=== PATIENT | male | born 1990 | race African-American/Black ===

== ENCOUNTER 2021-12-07 06:07 | Emergency (ER) | payer OTHER, SELFPAY ==
[2021-12-07] MEDS ORDERED: ACETAMINOPHEN 325 MG TABLET ONE (06:53)
[2021-12-07] MEDS ORDERED: METOCLOPRAMIDE 10 MG/2mL INJ ONE ×2 (06:53→06:55)
[2021-12-07] MEDS ORDERED: NA CHLORIDE 0.9% 1,000 ML ONE (06:53)
[2021-12-07] MEDS ORDERED: NA CHLORIDE 0.9% 50 ML ONE ×2 (06:53→06:55)
[2021-12-07] MEDS ORDERED: LIDOCAINE VISCOUS 2% SOLN 15 ML UDC ONE (06:56)
[2021-12-07] MEDS ORDERED: MAGNES/ALUMIN/SIMET 30ML UCUP ONE (06:56)
--- NOTE | 2021-12-07 07:26 | RAD REPORT ---
EXAM DESCRIPTION: CT - Head Brain Wo Cont - 12/07/2021 7:08 am CLINICAL HISTORY: Headache, new or worsening, positional COMPARISON: No comparisons TECHNIQUE: Axial 5 mm thick images of the head were obtained without IV contrast. All CT scans are performed using dose optimization technique as appropriate and may include automated exposure control or mA/KV adjustment according to patient size. FINDINGS: No intracranial hemorrhage, mass, edema or shift of mid-line structures. No acute infarcti on changes seen. No abnormal extra-axial fluid collections. Ventricles are normal. Mastoid air cells and visualized portions of the paranasal sinuses are clear. No acute bony findings. IMPRESSION: Negative non-contrast CT head examination.
--- NOTE | 2021-12-07 07:57 | EDPHYS ---
Physician Documentation [facility] Name: Greg Alarcon Age: 31 yrs Sex: Male : 1990 Arrival Date: 12/07/2021 Time: 06:10 Bed 14 Private MD: ED Physician Alfonso Sanchez HPI: 12/07 06:38 This 31 yrs old Black Male presents to ER via Unassigned with complaints of Headache. rn 06:38 The patient complains of pain to the right frontal area and right side of the back of rn head. The patient describes the headache as aching, throbbing. 06:39 Onset: The symptoms/episode began/occurred yesterday. Severity of symptoms: At its rn worst the pain was moderate, in the emergency department the pain is unchanged. Headache History: Denies prior headaches. The patient has not experienced similar symptoms in the past. The patient has not recently seen a physician. Pt reports headache, began yesterday, no trauma, no fever, no vomiting, no vision changes, no neck pain or stiffness. Denies hx of headaches in past. NO focal neuro complaints or symptoms. NO sick contacts. Patient does report family hx of "brain aneurysm".. Historical: - Allergies: 06:42 Amoxicillin; vc1 06:42 PENICILLINS; vc1 - Home Meds: 06:42 None [Active]; vc1 - PMHx: 06:42 None; vc1 - PSHx: 06:42 None; vc1 - Immunization history:: Adult Immunizations up to date, Client reports having NOT received the Covid vaccine. - Social history:: Smoking status: Patient reports the use of cigarette tobacco products, smokes one-half pack cigarettes per day. - Family history:: not pertinent. - Hospitalizations: : No recent hospitalization is reported. ROS: 06:39 Constitutional: Negative for fever, chills, and weight loss, Eyes: Negative for injury, rn pain, redness, and discharge, ENT: Negative for injury, pain, and discharge, Neck: Negative for injury, pain, and swelling, Cardiovascular: Negative for chest pain, palpitations, and edema, Respiratory: Negative for shortness of breath, cough, wheezing, and pleuritic chest pain, Abdomen/GI: Negative for abdominal pain, nausea, vomiting, diarrhea, and constipation, Back: Negative for injury and pain, MS/Extremity: Negative for injury and deformity, Skin: Negative for injury, rash, and discoloration, Neuro: Negative for weakness, numbness, tingling, and seizure. Exam: 06:39 Constitutional: This is a well developed, well nourished patient who is awake, alert, rn and in no acute distress. Head/Face: Normocephalic, atraumatic. Eyes: Pupils equal round and reactive to light, extra-ocular motions intact. Lids and lashes normal. Conjunctiva and sclera are non-icteric and not injected. Cornea within normal limits. Periorbital areas with no swelling, redness, or edema. ENT: No stridor, no nasal drainage Neck: Trachea midline, no masses palpated, and no cervical lymphadenopathy. Supple, full range of motion without nuchal rigidity, or vertebral point tenderness. No Meningismus. Cardiovascular: Regular rate and rhythm. No pulse deficits. Respiratory: Speaking full sentences, unlabored. No increased work of breathing, no retractions or nasal flaring. Abdomen/GI: Soft, non-tender Skin: Warm, dry, no rashes MS/ Extremity: Pulses equal, no cyanosis. Neurovascular intact. Full, normal range of motion. Equal circumference. Neuro: Awake and alert, GCS 15, oriented to person, place, time, and situation. Cranial nerves II-XII grossly intact. Motor strength 5/5 in all extremities. Sensory grossly intact. Cerebellar exam normal. Normal gait. Vital Signs: 06:39 BP 133 / 87; Pulse 106; Resp 18; Temp 100.8(O); Pulse Ox 99% on R/A; Weight 104.33 kg; vc1 Height 6 ft. (182.88 cm); Pain 6/10; 07:22 BP 135 / 97; Pulse 86; Resp 17; Pulse Ox 98% on R/A; tw2 06:39 Body Mass Index 31.19 (104.33 kg, 182.88 cm) vc1 MDM: 06:12 Patient medically screened. rn 07:55 Differential diagnosis: migraine, vasomotor headache. Data reviewed: vital signs, jr11 nurses notes, radiologic studies. ED course: Pt feeling better, refusing further testing, would like to go home, understands the risks involved includidng worsening condition. Pt has capacity to make decisions and can return at anytime. . 06/09 06:37 Order name: CT Head Brain wo Cont; Complete Time: 07:54 rn 12/07 06:38 Order name: IV Start; Complete Time: 06:49 rn Administered Medications: 06:58 Drug: Reglan (metoCLOPramide) 10 mg Route: IVP; Site: right antecubital; lg3 06:59 Follow up: Response: No adverse reaction lg3 06:58 Drug: Tylenol 650 mg Route: PO; lg3 06:58 Follow up: Response: No adverse reaction lg3 06:59 Drug: NS 0.9% 1000 ml Route: IV; Rate: 1000 ml; Site: right antecubital; lg3 07:54 Follow up: Response: No adverse reaction; IV Status: Completed infusion; IV Intake: tw2 1000ml 07:00 Drug: Maalox (aluminum hydroxide, magnesium hydroxide, simethicone) Suspension (200 lg3 mg-200 mg-20 mg/5 mL) 30 ml Route: PO; 07:00 Follow up: Response: No adverse reaction lg3 07:00 Drug: Viscous Lidocaine Liquid (4 %) 10 ml Route: Mucous Membrane; lg3 Disposition Summary: 12/07/21 07:57 Discharge Ordered Location: Home jr11 Condition: Stable jr11 Diagnosis - viral syndrome jr11 - Headache jr11 Discharge Instructions: - Discharge Summary Sheet tw2 - General Headache Without Cause jr11 - Upper Respiratory Infection, Adult jr11 Forms: - Work release form tw2 - SBAR form tw2 - Medication Reconciliation Form jr11 - Thank You Letter jr11 - Antibiotic Education jr11 - Prescription Opioid Use jr11 Prescriptions: - Ibuprofen 600 mg Oral Tablet - take 1 tablet by ORAL route every 6 hours As needed take with food; 30 tablet; jr11 Refills: 0, Product Selection Permitted - Reglan 10 mg Oral Tablet - take 1 tablet by ORAL route every 6 hours take 30 minutes before meals and at 11 bedtime; 20 tablet; Refills: 0, Product Selection Permitted Signatures: Dispatcher [employer] Stanislaw Fox MD MD rn Gibson, Lacie RN RN lg3 Jenny Helms RN RN vc1 Alfonso Sanchez MD MD jr11 Alyce Monte RN tw2 Corrections: (The following items were deleted from the chart) 06:41 06:39 Constitutional: Negative for fever, chills, and weight loss, Eyes: Negative for rn injury, pain, redness, and discharge, Neck: Negative for injury, pain, and swelling, Cardiovascular: Negative for chest pain, palpitations, and edema, Respiratory: Negative for shortness of breath, cough, wheezing, and pleuritic chest pain, Abdomen/GI: Negative for abdominal pain, nausea, vomiting, diarrhea, and constipation, Back: Negative for injury and pain, MS/Extremity: Negative for injury and deformity, Skin: Negative for injury, rash, and discoloration, Neuro: Negative for weakness, numbness, tingling, and seizure, rn 07:37 06:40 Influenza Screen (A \\T\\ B)+BA.LAB.BRZ ordered. EDMS EDMS 07:38 06:40 Group A Streptococcus Rapid Sc+BA.LAB.BRZ ordered. EDMS EDMS 07:38 06:40 SARS-COV-2 RT PCR+MOL.LAB.BRZ ordered. EDMS EDMS
--- NOTE | 2021-12-07 07:57 | ER ---
Nurse's Notes [facility] Name: Greg Alarcon Age: 31 yrs Sex: Male : 1990 Arrival Date: 12/07/2021 Time: 06:10 Bed 14 Private MD: Diagnosis: viral syndrome;Headache Presentation: 12/07 06:39 Chief complaint: Patient states: "I have had a headache for 2 days. I woke up with my vc1 head hurting. I took some BC powder and it went away and I was able to go back to sleep. When I woke up again it was back I took some Tylenol but it didn't help at all.". Coronavirus screen: Vaccine status: Patient reports being unvaccinated. diarrhea, fever, headache, Client presents with at least one sign or symptom that may indicate coronavirus-19. Standard/surgical mask placed on the client. Provider contacted for isolation considerations. Ebola Screen: No symptoms or risks identified at this time. Initial Sepsis Screen: Does the patient meet any 2 criteria? HR > 90 bpm. No. Patient's initial sepsis screen is negative. Does the patient have a suspected source of infection? No. Patient's initial sepsis screen is negative. Risk Assessment: Do you want to hurt yourself or someone else? Patient reports no desire to harm self or others. Onset of symptoms was December 05, 2021. 06:39 Method Of Arrival: Ambulatory vc1 06:39 Acuity: IRAJ 3 vc1 Triage Assessment: 06:42 Headache History: Denies prior headaches. General: Appears in no apparent distress. vc1 uncomfortable, Behavior is calm, cooperative, appropriate for age. Pain: Complains of pain in right episcopalian, left episcopalian and occipital area Pain does not radiate. Pain currently is 6 out of 10 on a pain scale. at worst was 9 out of 10 on a pain scale. Quality of pain is described as throbbing, pulsating, Pain began suddenly, Aggravated by movement Also complains of no other associated symptoms. EENT: No deficits noted. Neuro: Level of Consciousness is awake, alert, obeys commands, Oriented to person, place, time, situation, Appropriate for age. Cardiovascular: Denies chest pain, Patient's skin is warm and dry. Respiratory: Airway is patent Respiratory effort is even, unlabored, Respiratory pattern is regular, symmetrical. GI: Reports diarrhea, diarrhea X1. : No deficits noted. Derm: No deficits noted. Musculoskeletal: No deficits noted. Historical: - Allergies: 06:42 Amoxicillin; vc1 06:42 PENICILLINS; vc1 - Home Meds: 06:42 None [Active]; vc1 - PMHx: 06:42 None; vc1 - PSHx: 06:42 None; vc1 - Immunization history:: Adult Immunizations up to date, Client reports having NOT received the Covid vaccine. - Social history:: Smoking status: Patient reports the use of cigarette tobacco products, smokes one-half pack cigarettes per day. - Family history:: not pertinent. - Hospitalizations: : No recent hospitalization is reported. Screenin:44 Abuse screen: Denies threats or abuse. Nutritional screening: No deficits noted. vc1 Tuberculosis screening: No symptoms or risk factors identified. Fall Risk None identified. Assessment: 06:51 General: see triage assessment . lg3 06:51 Pain:. lg3 07:21 Reassessment: pt back from imaging at this time. nad. pt refused all further testing tw2 for covid, flu, or strep. states "i dont have any of that and i dont want to wait that long for the results and i am feeling better ", provider notified. 08:22 Reassessment: Patient appears in no apparent distress at this time. Patient and/or tw2 family updated on plan of care and expected duration. Pain level reassessed. Patient is alert, oriented x 3, equal unlabored respirations, skin warm/dry/pink. Patient states symptoms have improved. Vital Signs: 06:39 BP 133 / 87; Pulse 106; Resp 18; Temp 100.8(O); Pulse Ox 99% on R/A; Weight 104.33 kg; vc1 Height 6 ft. (182.88 cm); Pain 6/10; 07:22 BP 135 / 97; Pulse 86; Resp 17; Pulse Ox 98% on R/A; tw2 06:39 Body Mass Index 31.19 (104.33 kg, 182.88 cm) vc1 ED Course: 06:10 Patient arrived in ED. ja2 06:11 Stanislaw Zhang MD is Attending Physician. rn 06:42 Triage completed. vc1 06:44 Arm band placed on right wrist. vc1 06:44 Patient has correct armband on for positive identification. Bed in low position. Call vc1 light in reach. Pulse ox on. NIBP on. 06:45 More Barreto, RN is Primary Nurse. lg3 06:50 Inserted saline lock: 20 gauge in right antecubital area, using aseptic technique. lg3 07:06 Attending Physician role handed off by Stanislaw Zhang MD jr11 07:06 Alfonso Sanchez MD is Attending Physician. jr11 07:10 CT Head Brain wo Cont In Process Unspecified. EDMS 07:16 Primary Nurse role handed off by More Barreto, RN tw2 07:16 Alyce Monte RN is Primary Nurse. tw2 08:21 No provider procedures requiring assistance completed. IV discontinued, intact, tw2 bleeding controlled, No redness/swelling at site. Pressure dressing applied. Administered Medications: 06:58 Drug: Reglan (metoCLOPramide) 10 mg Route: IVP; Site: right antecubital; lg3 06:59 Follow up: Response: No adverse reaction lg3 06:58 Drug: Tylenol 650 mg Route: PO; lg3 06:58 Follow up: Response: No adverse reaction lg3 06:59 Drug: NS 0.9% 1000 ml Route: IV; Rate: 1000 ml; Site: right antecubital; lg3 07:54 Follow up: Response: No adverse reaction; IV Status: Completed infusion; IV Intake: tw2 1000ml 07:00 Drug: Maalox (aluminum hydroxide, magnesium hydroxide, simethicone) Suspension (200 lg3 mg-200 mg-20 mg/5 mL) 30 ml Route: PO; 07:00 Follow up: Response: No adverse reaction lg3 07:00 Drug: Viscous Lidocaine Liquid (4 %) 10 ml Route: Mucous Membrane; lg3 Medication: 06:51 VIS not applicable for this client. lg3 Intake: 07:54 IV: 1000ml; Total: 1000ml. tw2 Outcome: 07:57 Discharge ordered by . jr11 08:21 Discharged to home ambulatory. tw2 08:21 Condition: stable 08:21 Discharge instructions given to patient, Instructed on discharge instructions, follow up and referral plans. no drinking with medication, no driving heavy equipment, medication usage, Demonstrated understanding of instructions, follow-up care, medications, Prescriptions given X 2. 08:22 Patient left the ED. tw2 Signatures: Dispatcher [employer] EDStanislaw Ann MD MD rn Alyce Monte RN RN tw2 More Barreto RN RN lg3 Jaelyn Garcia2 Jenny Helms RN RN vc1 Alfonso Sanchez MD MD jr11
[2021-12-07 09:07] VITALS: BP 135/97; O2SAT 98
[2021-12-07 09:09] VITALS: TEMP 100.8
== END 2021-12-07 08:22 | disposition home or self-care (01) ==
LOC: ER 06:07
DX: B34.9 Viral infection, unspecified (principal); F17.210 Nicotine dependence, cigarettes, uncomplicated; Z88.0 Allergy status to penicillin; Z88.1 Allergy status to other antibiotic agents
CPT/HCPCS: 70450; 96361; 96374; 99284; J2765; J7030